=== PATIENT | female | born 1980 | race Caucasian/White ===

== ENCOUNTER 2018-01-31 00:09 | Emergency (ER) | payer OTHER ==
[~2018-01-31] VITALS: Ht 157.5 cm; Wt 68.0 kg
[~2018-01-31 00:09] MED LIST: DELTASONE20 MG PO; PYRAZINAMIDE 5500 MG PO; TRIAMCINOLONE A15 G1 TP
[2018-01-31 00:47] LABS: URINE BILIRUBIN NEGATIVE (Negative); URINE BLOOD 3+ (Negative); URINE CLARITY CLEAR; URINE COLOR YELLOW; URINE GLUCOSE-RANDOM NEGATIVE (Negative); URINE KETONES NEGATIVE (Negative); URINE LEUKOCYTES-REFLEX NEGATIVE (Negative); URINE NITRITE-REFLEX NEGATIVE (Negative); URINE PROTEIN TRACE (Negative); URINE SPECIFIC GRAVITY >= 1.030 (1.005-1.030); URINE UROBILINOGEN 0.2 E.U./dl (0.2-1.0)
[2018-01-31 01:05] LABS: SQUAMOUS >10 Many /LPF (0-3)
[2018-01-31 01:06] LABS: CASTS None Seen /LPF (None Seen); CRYSTALS None Seen /LPF (None Seen); URINE WBC-REFLEX 0-5 Rare /HPF (0-5)
[2018-01-31] MEDS ORDERED: HYDROCODONE-AP1 EAC6 PO (04:53)
[2018-01-31] MEDS ORDERED: FLOMAX0.4 MG PO (04:53)
[2018-01-31 05:05] VITALS: BP 122/81
[2018-01-31] MEDS ORDERED: ZOFRAN ODT4 MG PO (05:16)
== END 2018-01-31 05:05 | disposition home or self-care (01) ==
LOC: M.ERS 00:09
PROVIDERS: Emergency Medicine
DX: N20.0 Calculus of kidney (principal); N83.202 Unspecified ovarian cyst, left side; F17.210 Nicotine dependence, cigarettes, uncomplicated; Z88.5 Allergy status to narcotic agent